=== PATIENT | male | born 1975 | race African-American/Black ===

== ENCOUNTER 2017-02-28 11:13 | Inpatient (IN) | payer OTHER ==
[2017-02-28] VITALS (9 sets, daily range): BP systolic 123–144; BP diastolic 61–82; PULSE 84–91; RESP 15–21; TEMP 98; O2SAT 92–100
[~2017-02-28] VITALS: Ht 177.8 cm; Wt 121.3 kg
[2017-02-28] MEDS ORDERED: SODIUM CHLOR 0.9% 1000 ML INJ 1,000 ML IV SCH (11:28)
[2017-02-28] MEDS ORDERED: GLIP10TA6 PO (11:29)
[2017-02-28] MEDS ORDERED: LISI-519 PO (11:29)
[2017-02-28] MEDS ORDERED: PRAV80TA2 PO (11:29)
[2017-02-28] MEDS ORDERED: METF-382 PO (11:29)
[2017-02-28] MEDS ORDERED: SODIUM CHLOR 0.9% 1000 ML INJ 1,000 ML IV ONE ×2 (11:30→13:00)
[2017-02-28] MEDS ORDERED: SODIUM CHLORIDE 0.9% FLUSH 10 ML FLUSH IVF PRN (11:30)
[2017-02-28] MEDS ORDERED: ONDANSETRON HCL 4 MG/2 ML VIAL IV PUSH ONE (11:30)
--- NOTE | 2017-02-28 11:53 | PD ---
HPI Chief Complaint: Diabetic Time Seen by Provider: 11:17 Travel History International Travel<30 days: No Contact w/Intl Traveler<30days: No Traveled to known affect area: No History of Present Illness HPI The patient is a 41-year-old Debra male who presents emergency department via EMS for altered mental status. According to EMS the patient was at home, sitting on the toilet in the bathroom, suffering from nausea and vomiting when he apparently had a syncopal episode. The patient apparently called out for his roommate, according to EMS, who found the patient lying on the floor. The patient is a somewhat reluctant historian, states he was having nausea and vomiting for one days duration, when he felt lightheaded in the bathroom. The patient states he did not lose consciousness, but did lie on the floor secondary to feeling lightheaded. The patient does have a history of diabetes for which she takes metformin and insulin. The patient denies any trauma to the head. He denies any diarrhea associated with the nausea or vomiting. He denies any current abdominal pain. Symptoms are moderate, no known alleviating factors, possibly exacerbated by recent nausea/vomiting. [facility] Past Medical History Medical History: Unable to Obtain Tetanus Vaccination: Unknown Past Surgical History Surgical History: Unable to Obtain Social History Alcohol Use: No Tobacco Use: No Substance Use: No Allergies-Medications (Allergen,Severity, Reaction): Coded Allergies: No Known Allergies (Unverified , 02/28/17) Reported Meds & Prescriptions Reported Meds & Active Scripts Active Reported Pravastatin 80 Mg Tab 80 Mg PO DAILY Lisinopril 5 Mg Tab 5 Mg PO DAILY Metformin ER (Metformin HCl) 1,000 Mg Sangeetha 1,000 Mg PO BID With evening meal Glipizide 10 Mg Tab 10 Mg PO BIDAC Take 30 minutes before a meal Review of Systems Except as stated in HPI: all other systems reviewed are Neg General / Constitutional: No: Fever HENT: Positive: Lightheadedness Cardiovascular: No: Chest Pain or Discomfort Respiratory: No: Shortness of Breath Gastrointestinal: Positive: Nausea, Vomiting, No: Abdominal Pain Genitourinary: No: Dysuria Musculoskeletal: Positive: Weakness Neurologic: Positive: Weakness, Dizziness Physical Exam Narrative GENERAL: Awake, somewhat lethargic, 41-year-old male who appears his stated age and is in no acute respiratory distress. SKIN: Focused skin assessment warm/dry. HEAD: Atraumatic. Normocephalic. EYES: Pupils equal and round. Pupils are 3 mm bilateral and reactive. ENT: No nasal bleeding or discharge. Slightly dry mucous membranes.. NECK: Trachea midline. No JVD. CARDIOVASCULAR: Regular rate and rhythm. No murmur appreciated. RESPIRATORY: No accessory muscle use. Clear to auscultation. Breath sounds equal bilaterally. GASTROINTESTINAL: Abdomen soft, reducible umbilical hernia. No rebound tenderness. MUSCULOSKELETAL: No obvious deformities. No clubbing. No cyanosis. No edema. NEUROLOGICAL: Awake, lethargic. No obvious cranial nerve deficits. Moves all 4 extremities. PSYCHIATRIC: Somewhat flat affect. Data Data Last Documented VS Vital Signs Date Time Temp Pulse Resp B/P Pulse Ox O2 Delivery O2 Flow Rate FiO2 02/28/17 13:00 90 21 131/62 97 Room Air 02/28/17 11:21 98.0 Orders Electrocardiogram (02/28/17 11:28) Complete Blood Count With Diff (02/28/17 11:28) Comprehensive Metabolic Panel (02/28/17 11:28) Creatine Kinase (Cpk) (02/28/17 11:28) Thyroid Stimulating Hormone (02/28/17 11:28) Urinalysis - C+S If Indicated (02/28/17 11:28) Blood Glucose (02/28/17 11:28) Ecg Monitoring (02/28/17 11:28) Iv Access Insert/Monitor (02/28/17 11:28) Oximetry (02/28/17 11:28) Sodium Chloride 0.9% Flush (Ns Flush) (02/28/17 11:30) Sodium Chlor 0.9% 1000 Ml Inj (Ns 1000 M (02/28/17 11:28) Drug Screen, Random Urine (02/28/17 11:28) Alcohol (Ethanol) (02/28/17 11:28) Resp Blood Gas Venous (02/28/17 ) Sodium Chlor 0.9% 1000 Ml Inj (Ns 1000 M (02/28/17 11:30) Ondansetron Inj (Zofran Inj) (02/28/17 11:30) Lactic Acid (02/28/17 11:28) Lipase (02/28/17 11:53) Prochlorperazine Inj (Compazine Inj) (02/28/17 12:00) Diphenhydramine Inj (Benadryl Inj) (02/28/17 12:00) Sodium Chlor 0.9% 1000 Ml Inj (Ns 1000 M (02/28/17 13:00) Blood Gas Venous (Vbg) (02/28/17 11:36) Place In Observation (02/28/17 ) Code Status (02/28/17 13:45) Vital Signs (Adult) Q4H (02/28/17 13:45) Activity Oob With Assistance (02/28/17 13:45) Lei Seller / Telemetry .CONTINUOUS (02/28/17 13:45) Diet Diabetic (02/28/17 Lunch) Sodium Chloride 0.9% Flush (Ns Flush) (02/28/17 13:45) Sodium Chloride 0.9% Flush (Ns Flush) (02/28/17 21:00) Acetaminophen (Tylenol) (02/28/17 13:45) Ondansetron Inj (Zofran Inj) (02/28/17 13:45) Magnesium Hydroxide Liq (Milk Of Magnesi (02/28/17 13:45) Temazepam (Restoril) (02/28/17 13:45) Basic Metabolic Panel (Bmp) (03/01/17 06:00) Comprehensive Metabolic Panel (03/01/17 06:00) Chest, Single Ap (02/28/17 13:45) Electrocardiogram (02/28/17 13:45) Pt Request For Service (02/28/17 13:45) Scd Bilateral/Knee High INES.BID (02/28/17 13:45) Naloxone Inj (Narcan Inj) (02/28/17 13:45) Insulin Aspart Supplemtl Scale (Novolog (02/28/17 16:00) Lisinopril (Prinivil) (03/01/17 09:00) Pravastatin (Pravachol) (02/28/17 14:00) Eeg Study (02/28/17 ) 1/2 Ns + Kcl Inj (02/28/17 14:00) Labs Laboratory Tests Test 02/28/17 02/28/17 02/28/17 11:36 11:40 13:25 Blood Gas Puncture Site SWAN ALBERT LINE Blood Gas Patient Temperature 98.6 Venous Blood pH 7.24 Venous Blood Partial Pressure 44 mmHg CO2 Venous Blood Partial Pressure 33 mmHg O2 Venous Blood HCO3 18 mmol/L Venous Blood Oxygen Saturation 50 % Venous Blood Oxygen Content 9.9 Vol % Venous Blood Base Excess -7.9 mmol/L Oxygen Delivery Device ROOM AIR Blood Gas Inspired Oxygen 21 % White Blood Count 10.0 TH/MM3 Red Blood Count 4.60 MIL/MM3 Hemoglobin 13.6 GM/DL Hematocrit 40.3 % Mean Corpuscular Volume 87.5 FL Mean Corpuscular Hemoglobin 29.6 PG Mean Corpuscular Hemoglobin 33.8 % Concent Red Cell Distribution Width 12.5 % Platelet Count 211 TH/MM3 Mean Platelet Volume 10.6 FL Neutrophils (%) (Auto) 70.9 % Lymphocytes (%) (Auto) 21.9 % Monocytes (%) (Auto) 6.1 % Eosinophils (%) (Auto) 0.6 % Basophils (%) (Auto) 0.5 % Neutrophils # (Auto) 7.1 TH/MM3 Lymphocytes # (Auto) 2.2 TH/MM3 Monocytes # (Auto) 0.6 TH/MM3 Eosinophils # (Auto) 0.1 TH/MM3 Basophils # (Auto) 0.0 TH/MM3 CBC Comment DIFF FINAL Differential Comment Sodium Level 139 MEQ/L Potassium Level 3.7 MEQ/L Chloride Level 105 MEQ/L Carbon Dioxide Level 20.2 MEQ/L Anion Gap 14 MEQ/L Blood Urea Nitrogen 13 MG/DL Creatinine 1.25 MG/DL Estimat Glomerular Filtration 63 ML/MIN Rate Random Glucose 356 MG/DL Lactic Acid Level 4.9 mmol/L Calcium Level 8.3 MG/DL Total Bilirubin 0.7 MG/DL Aspartate Amino Transf 15 U/L (AST/SGOT) Alanine Aminotransferase 33 U/L (ALT/SGPT) Alkaline Phosphatase 95 U/L Total Creatine Kinase 122 U/L Total Protein 7.3 GM/DL Albumin 3.5 GM/DL Lipase 116 U/L Thyroid Stimulating Hormone 0.917 uIU/ML 3rd Gen Ethyl Alcohol Level LESS THAN 3 MG/DL Urine Color LIGHT-YELLOW Urine Turbidity CLEAR Urine pH 5.5 Urine Specific [place] 1.037 Urine Protein NEG mg/dL Urine Glucose (UA) 1000 mg/dL Urine Ketones 10 mg/dL Urine Occult Blood NEG Urine Nitrite NEG Urine Bilirubin NEG Urine Urobilinogen LESS THAN 2.0 MG/DL Urine Leukocyte Esterase NEG Urine RBC LESS THAN 1 /hpf Urine WBC LESS THAN 1 /hpf Urine Squamous Epithelial <1 /hpf Cells Urine Mucus FEW /lpf Microscopic Urinalysis Comment CATH-CULT NOT IND MDM Medical Decision Making Medical Screen Exam Complete: Yes Emergency Medical Condition: Yes Medical Record Reviewed: Yes Interpretation(s) EKG reveals normal sinus rhythm with a rate of 76. Q wave noted in lead 3. Laboratory Tests Test 02/28/17 11:40 White Blood Count 10.0 TH/MM3 Red Blood Count 4.60 MIL/MM3 Hemoglobin 13.6 GM/DL Hematocrit 40.3 % Mean Corpuscular Volume 87.5 FL Mean Corpuscular Hemoglobin 29.6 PG Mean Corpuscular Hemoglobin 33.8 % Concent Red Cell Distribution Width 12.5 % Platelet Count 211 TH/MM3 Mean Platelet Volume 10.6 FL Neutrophils (%) (Auto) 70.9 % Lymphocytes (%) (Auto) 21.9 % Monocytes (%) (Auto) 6.1 % Eosinophils (%) (Auto) 0.6 % Basophils (%) (Auto) 0.5 % Neutrophils # (Auto) 7.1 TH/MM3 Lymphocytes # (Auto) 2.2 TH/MM3 Monocytes # (Auto) 0.6 TH/MM3 Eosinophils # (Auto) 0.1 TH/MM3 Basophils # (Auto) 0.0 TH/MM3 CBC Comment DIFF FINAL Differential Comment Sodium Level 139 MEQ/L Potassium Level 3.7 MEQ/L Chloride Level 105 MEQ/L Carbon Dioxide Level 20.2 MEQ/L Anion Gap 14 MEQ/L Blood Urea Nitrogen 13 MG/DL Creatinine 1.25 MG/DL Estimat Glomerular Filtration 63 ML/MIN Rate Random Glucose 356 MG/DL Lactic Acid Level 4.9 mmol/L Calcium Level 8.3 MG/DL Total Bilirubin 0.7 MG/DL Aspartate Amino Transf 15 U/L (AST/SGOT) Alanine Aminotransferase 33 U/L (ALT/SGPT) Alkaline Phosphatase 95 U/L Total Creatine Kinase 122 U/L Total Protein 7.3 GM/DL Albumin 3.5 GM/DL Lipase 116 U/L Thyroid Stimulating Hormone 0.917 uIU/ML 3rd Gen Ethyl Alcohol Level LESS THAN 3 MG/DL Differential Diagnosis Differential diagnosis includes hyperglycemia, dehydration, DKA, hyperosmolar syndrome, electrolyte abnormality, intracranial hemorrhage, syncope, pancreatitis. Narrative Course IV was established, labs are drawn and sent, and the patient was placed on cardiac telemetry monitoring and continuous pulse oximetry monitoring. The patient was administered Zofran and IV fluids. EKG was ordered and interpreted. CT of the brain was ordered. However, when patient went to the CT suite, he advises CT personnel he is unable to lie supine and refuses CT. Upon return from CT suite the patient had dry heaves. Therefore, patient was administered Compazine and Benadryl. The patient refused to lay supine for the CT. The patient was reevaluated at 12 :45 PM. The patient's roommate was there who stated the patient called out from the bathroom, when he walked in the patient was on the toilet. The patient then had a syncopal episode with loss of consciousness according to the patient's roommate. He laid him on the floor and called EMS. He states the patient had several episodes of loss of consciousness. The patient continues to complain of persistent nausea, but abdominal exam is benign. Patient states he cannot lie supine because it increases his nausea. The patient appears somewhat sedated and lethargic, therefore, will be 23 hour observation to evaluate if he returned to baseline. Registration states the patient has [facility]. I spoke with the patient, the roommate states they work at [employer]. However, the patient does not have a primary physician. Therefore, [facility] was paged for admission. The patient will need a repeat lactic acid, IV fluids, and possible evaluation by neuro/psych if his symptoms don't resolve. Patient has a somewhat odd affect, but does have elevated lactic acid and possible syncope. Physician Communication Physician Communication The on-call medical service was paged for 23 hour observation. I discussed the patient with the on-call [facility] physician, Dr. Bacon, who agrees with 23 hour observation. Diagnosis Primary Impression: Altered mental status Qualified Code: R41.82 - Altered mental status, unspecified altered mental status type Additional Impressions: Lactic acidosis Syncope Qualified Code: R55 - Syncope, unspecified syncope type Admitting Information Admitting Physician Requests: Observation Condition: Stable Warren Alexander MD Feb 28, 2017 11:53
[2017-02-28] MEDS ORDERED: PROCHLORPERAZINE INJ 10 MG/2 ML VIAL IV PUSH ONE (12:00)
[2017-02-28] MEDS ORDERED: diphenhydrAMINE HCL 50 MG/ML VIAL IV PUSH ONE (12:00)
[2017-02-28 12:05] LABS: AUTOMATED NEUTROPHIL # 7.1 TH/MM3 (1.8-7.7); BASOPHIL % 0.5 % (0.0-2.0); EOSINOPHIL # 0.1 TH/MM3 (0-0.4); EOSINOPHIL % 0.6 % (0.0-4.0); HEMATOCRIT 40.3 % (39.0-51.0); HEMO FLAGS DIFF FINAL; LYMPH % 21.9 % (9.0-44.0); LYMPHOCYTE # 2.2 TH/MM3 (1.0-4.8); MEAN CELL VOLUME 87.5 FL (80.0-100.0); MEAN CORPUSCULAR HEMOGLOBIN 29.6 PG (27.0-34.0); MEAN CORPUSCULAR HGB CONC 33.8 % (32.0-36.0); MONO % 6.1 % (0.0-8.0); NEUT % 70.9 % (16.0-70.0); PLATELET COUNT 211 TH/MM3 (150-450); RED CELL DISTRIBUTION WIDTH 12.5 % (11.6-17.2)
[2017-02-28 12:25] LABS: ANION GAP 14 MEQ/L (5-15)
[2017-02-28 12:35] LABS: ALKALINE PHOSPHATASE 95 U/L (45-117); ALT (GPT) 33 U/L (12-78); AST (GOT) 15 U/L (15-37); BICARBONATE 20.2 MEQ/L (21.0-32.0); BLOOD UREA NITROGEN 13 MG/DL (7-18); CHLORIDE 105 MEQ/L (98-107); CREATINE KINASE 122 U/L (39-308); GLOMERULAR FILTRATION RATE 63 ML/MIN (>89); POTASSIUM 3.7 MEQ/L (3.5-5.1); SODIUM (NA) 139 MEQ/L (136-145); TOTAL BILIRUBIN ADULT 0.7 MG/DL (0.2-1.0)
[2017-02-28] MEDS ORDERED: ACETAMINOPHEN 325 MG TAB PO PRN (13:45)
[2017-02-28] MEDS ORDERED: TEMAZEPAM 15 MG CAP PO PRN (13:45)
[2017-02-28] MEDS ORDERED: SODIUM CHLORIDE 0.9% FLUSH 10 ML FLUSH IV FLUSH PRN (13:45)
[2017-02-28] MEDS ORDERED: NALOXONE HCL 0.4 MG/ML AMP IV PRN (13:45)
[2017-02-28] MEDS ORDERED: MAGNESIUM HYDROXIDE SUSP 30 ML CUP PO PRN (13:45)
[2017-02-28] MEDS ORDERED: ONDANSETRON HCL 4 MG/2 ML VIAL IVP PRN (13:45)
[2017-02-28 13:46] LABS: BLOOD GAS VENOUS BASE EXCESS -7.9 mmol/L (-2-2); BLOOD GAS VENOUS HCO3 18 mmol/L (22-26); BLOOD GAS VENOUS O2 CONTENT 9.9 Vol % (9.0-17.0); BLOOD GAS VENOUS O2 HGB SAT 50 % (70-76); BLOOD GAS VENOUS PCO2 44 mmHg (44-48); BLOOD GAS VENOUS PO2 33 mmHg (35-40); BLOOD GAS VENOUS pH 7.24 (7.360-7.400); TEMP CORR TO 98.6
[2017-02-28 13:47] LABS: CRITICAL VALUE YES; DRAW SITE SWAN GANZ LINE; FIO2 21 %; OXYGEN DEVICE ROOM AIR; STAT YES
[2017-02-28 13:49] LABS: BLOOD, URINE NEG (NEG); GLUCOSE,URINE 1000 mg/dL (NEG); KETONE, URINE 10 mg/dL (NEG); MUCUS URINE FEW /lpf (OCC); NITRITE,URINE NEG (NEG); PH, URINE 5.5 (5.0-8.5); SQUAMOUS EPITHELIAL CELL URINE <1 /hpf (0-5); URINE COLOR LIGHT-YELLOW (YELLW/STRAW)
[2017-02-28 13:50] LABS: COMMENT (UR) CATH-CULT NOT IND; CULTURE IF INDICATED CATH CULTURE NOT IND
[2017-02-28] MEDS ORDERED: GLUCAGON 1 MG/ML VIAL OTHER PRN (14:30)
[2017-02-28] MEDS ORDERED: DEXTROSE 50% IN WATER 50 ML VIAL(D50) IV PUSH PRN (14:30)
[2017-02-28] MEDS: 1/2 NS + KCL 20 MEQ INJ 1,000 ML IV SCH ×2 (14:56→21:04)
--- NOTE | 2017-02-28 15:12 | RADRPT ---
EXAM DATE/TIME: 02/28/2017 13:46 [place] COMPARISON: No previous studies available for comparison. INDICATIONS : Shortness of breath. MEDICAL HISTORY : None. SURGICAL HISTORY : None. ENCOUNTER: Initial ACUITY: 1 day PAIN SCORE: Non-responsive. LOCATION: Bilateral chest FINDINGS: A single view of the chest demonstrates minimal bibasilar atelectasis. Heart is normal in size. The cardiomediastinal contours are unremarkable. Osseous structures are intact. CONCLUSION: Minimal bibasilar atelectasis. Tenzin Damon MD on February 28, 2017 at 15:10 Board Certified Radiologist. This report was verified electronically.
--- NOTE | 2017-02-28 16:01 | HHI.HP ---
HPI Service CP Hospitalists Primary Care Physician No Primary Care Physician Admission Diagnosis altered mental status, syncope versus seizure, lactic acidosis Chief Complaint: AMS Travel History International Travel<30 Days: No Contact w/Intl Traveler <30 Da: No Traveled to Known Affected Are: No History of Present Illness Mr. Davison is a 41 y/o AAM with diabetes, HTN, and hyperlipidemia. He presented to the ED at [facility] [address] on 02/28/17 with reported AMS. The pt reports that he had been in his normal state of health and was drinking with his friends last night. This morning he woke up and when he got up and out of bed he started having severe dizziness. He went to the bathroom and began having nausea and vomiting. He states that the dizziness was so severe that he felt like he was falling to the left. He fell down off the toilet but states that he did not lose consciousness or hit his head when he fell. He would not speak much to the ED physician his roommate provided the history to the ED physician. Pt is conversive lying on his left side with his eye closed. He states that the dizziness is severe when he tries to change positions or lie flat. His labs in the ED noted an elevated lactic acid level of 4.9 and a repeat elevated to 6.0 and the pt is being admitted to the ICU for lactic acidosis. Pt denies any recent injury or trauma. Review of Systems Constitutional: COMPLAINS OF: Dizziness, DENIES: Fever, Chills Respiratory: DENIES: Shortness of breath Cardiovascular: DENIES: Chest pain, Palpitations Gastrointestinal: COMPLAINS OF: Nausea, Vomiting, DENIES: Abdominal pain, Constipation, Diarrhea Past Family Social History Past Medical History Diabetes HTN Hyperlipidemia Past Surgical History Cervical spine surgery Reported Medications Pravastatin 80 Mg PO DAILY Lisinopril 5 Mg PO DAILY Metformin ER 1,000 Mg PO BID Glipizide 10 Mg PO BIDAC Allergies: Coded Allergies: No Known Allergies (Unverified , 02/28/17) Family History Noncontributory Social History Rare tobacco use (+)Alcohol use Denies any illicit drug use Physical Exam Vital Signs Vital Signs Date Time Temp Pulse Resp B/P Pulse Ox O2 Delivery O2 Flow Rate FiO2 02/28/17 13:00 90 21 131/62 97 Room Air 02/28/17 11:25 86 16 100 Room Air 02/28/17 11:25 100 Room Air 02/28/17 11:21 98.0 84 15 142/70 94 Physical Exam GENERAL: This is a well-nourished, well-developed patient, lying on his left side refusing to lie back. HEENT: Atraumatic. Normocephalic. No temporal or scalp tenderness. No nystagmus noted. No scleral icterus. Airway patent. NECK: Trachea midline, supple CARDIO: Regular. RESP: CTA bilaterally. No wheezes, rales, or rhonchi. ABD: +BS, soft, non-tender, nondistended. EXT: Extremities without clubbing, cyanosis, or edema. NEURO: Limited exam as the pt would not move from lying on his left side. Normal speech. Laboratory Laboratory Tests Test 02/28/17 02/28/17 02/28/17 02/28/17 11:36 11:40 13:25 14:45 Blood Gas Puncture Site SWAN ALBERT LINE Blood Gas Patient Temperature 98.6 Venous Blood pH 7.24 Venous Blood Partial Pressure 44 CO2 Venous Blood Partial Pressure 33 O2 Venous Blood HCO3 18 Venous Blood Oxygen Saturation 50 Venous Blood Oxygen Content 9.9 Venous Blood Base Excess -7.9 Oxygen Delivery Device ROOM AIR Blood Gas Inspired Oxygen 21 White Blood Count 10.0 Red Blood Count 4.60 Hemoglobin 13.6 Hematocrit 40.3 Mean Corpuscular Volume 87.5 Mean Corpuscular Hemoglobin 29.6 Mean Corpuscular Hemoglobin 33.8 Concent Red Cell Distribution Width 12.5 Platelet Count 211 Mean Platelet Volume 10.6 Neutrophils (%) (Auto) 70.9 Lymphocytes (%) (Auto) 21.9 Monocytes (%) (Auto) 6.1 Eosinophils (%) (Auto) 0.6 Basophils (%) (Auto) 0.5 Neutrophils # (Auto) 7.1 Lymphocytes # (Auto) 2.2 Monocytes # (Auto) 0.6 Eosinophils # (Auto) 0.1 Basophils # (Auto) 0.0 CBC Comment DIFF FINAL Differential Comment Sodium Level 139 Potassium Level 3.7 Chloride Level 105 Carbon Dioxide Level 20.2 Anion Gap 14 Blood Urea Nitrogen 13 Creatinine 1.25 Estimat Glomerular Filtration 63 Rate Random Glucose 356 Lactic Acid Level 4.9 6.0 Calcium Level 8.3 Total Bilirubin 0.7 Aspartate Amino Transf 15 (AST/SGOT) Alanine Aminotransferase 33 (ALT/SGPT) Alkaline Phosphatase 95 Total Creatine Kinase 122 Total Protein 7.3 Albumin 3.5 Lipase 116 Thyroid Stimulating Hormone 0.917 3rd Gen Ethyl Alcohol Level LESS THAN 3 Urine Color LIGHT-YELLOW Urine Turbidity CLEAR Urine pH 5.5 Urine Specific [place] 1.037 Urine Protein NEG Urine Glucose (UA) 1000 Urine Ketones 10 Urine Occult Blood NEG Urine Nitrite NEG Urine Bilirubin NEG Urine Urobilinogen LESS THAN 2.0 Urine Leukocyte Esterase NEG Urine RBC LESS THAN 1 Urine WBC LESS THAN 1 Urine Squamous Epithelial <1 Cells Urine Mucus FEW Microscopic Urinalysis Comment CATH-CULT NOT IND Urine Opiates Screen NEG Urine Barbiturates Screen NEG Urine Amphetamines Screen NEG Urine Benzodiazepines Screen NEG Urine Cocaine Screen NEG Urine Cannabinoids Screen NEG Result Diagram: 02/28/17 1140 02/28/17 1140 Imaging Last Impressions Chest X-Ray 02/28/17 1345 Signed Impressions: Service Date/Time: Tuesday, February 28, 2017 13:46 - CONCLUSION: Minimal bibasilar atelectasis. Tenzin Damon MD Septic Shock Reassessment Heart: Regular rate and rhythm Lungs: Clear Skin: Warm Peripheral Pulses: Bounding Right Radial Bounding Left Radial Bounding Right Popliteal Bounding Left Popliteal Bounding Right Dorsalis Pedis Bounding Left Dorsalis Pedis Bounding Right Posterior Tibial Bounding Left Posterior Tibial Assessment and Plan Problem List: (1) Dizziness Status: Acute Plan: - Pt woke up this morning with severe dizziness with associated nausea and vomiting. Pt reports that this seems to be more positional related and pt feels himself pulling more towards the left side. The dizziness seems to be increased with changing positions or lying flat. This seems to be more consistent with positional vertigo. - Pt is on IVF - We will start scheduled Meclizine 25mg Q8H - He was drinking alcohol last night but denies any illicit drug use - Check UDS - MRI in AM - Pt was noted to have lactic acidosis, the cause for this is unclear. Lactic acid level increased to 6 on repeat labs - EEG ordered but pt refused - Recheck labs in AM - PT evaluation in AM - Supportive care - Further recommendations as the case develops - DVT prophylaxis (2) Lactic acidosis Status: Acute Plan: - See above. (3) Diabetes Status: Chronic Plan: - NovoLog SSI - Accu checks - Check Hgb A1C (4) HTN (hypertension) Status: Chronic Plan: - Cont. Lisinopril - Monitor (5) Hyperlipidemia Status: Chronic Assessment and Plan Patient examined. Assessment and plan formulated with Marjan Sandhu PA-C. I agree with the above. Problem Qualifiers (1) Diabetes: (2) Hyperlipidemia: Qualified Code: E78.5 - Hyperlipidemia, unspecified hyperlipidemia type Marjan Sandhu Feb 28, 2017 16:01 Ziggy Bacon DO March 12, 2017 10:39
[2017-02-28] MEDS: INSULIN ASPART SUPPLEMENTAL SCALE SQ SCH ×2 (16:55→21:04)
[2017-02-28 17:11] LABS: LACTIC ACID GHOST NOT REPORTABLE
[2017-02-28] MEDS ORDERED: LORazepam 2 MG/ML VIAL IV PUSH PRN (18:00)
[2017-02-28] MEDS: MECLIZINE HCL 25 MG TAB PO SCH (19:49)
[2017-02-28] MEDS ORDERED: PRAVASTATIN SOD 80 MG TAB PO SCH (21:00)
[2017-02-28] MEDS: SODIUM CHLORIDE 0.9% FLUSH 10 ML FLUSH IV FLUSH SCH (21:04)
[2017-02-28] MEDS ORDERED: CHLORHEXIDINE GLUCONATE 2 % 1 PACK (2 CLOTHS)(extra cloths) TOPICAL PRN (21:30)
[2017-02-28 23:05] LABS: AMPHETAMINE, URINE NEG (NEG); BARBITURATES, URINE NEG (NEG); COCAINE, URINE NEG (NEG)
[2017-03-01] VITALS (8 sets, daily range): BP systolic 134–156; BP diastolic 65–90; PULSE 71–83; RESP 6–27; TEMP 98.2–99.1; O2SAT 93–96
[2017-03-01] MEDS: MECLIZINE HCL 25 MG TAB PO SCH ×2 (03:58→11:21)
[2017-03-01] MEDS ORDERED: CHLORHEXIDINE GLUCONATE 2 % 1 PACK (2 CLOTHS)(taper/protocol) TOPICAL SCH (04:00)
[2017-03-01 05:50] LABS: ALT (GPT) 25 U/L (12-78); ANION GAP 8 MEQ/L (5-15); AST (GOT) 10 U/L (15-37); BICARBONATE 22.9 MEQ/L (21.0-32.0); BLOOD UREA NITROGEN 10 MG/DL (7-18); CHLORIDE 109 MEQ/L (98-107); GLOMERULAR FILTRATION RATE 110 ML/MIN (>89); POTASSIUM 3.7 MEQ/L (3.5-5.1); SODIUM (NA) 140 MEQ/L (136-145)
[2017-03-01 05:55] LABS: ALKALINE PHOSPHATASE 65 U/L (45-117); TOTAL BILIRUBIN ADULT 1.7 MG/DL (0.2-1.0)
[2017-03-01] MEDS: 1/2 NS + KCL 20 MEQ INJ 1,000 ML IV SCH ×2 (06:05→15:35)
[2017-03-01] MEDS: INSULIN ASPART SUPPLEMENTAL SCALE SQ SCH ×3 (06:40→15:35)
[2017-03-01] MEDS: SODIUM CHLORIDE 0.9% FLUSH 10 ML FLUSH IV FLUSH SCH (08:20)
--- NOTE | 2017-03-01 08:46 | EKG ---
Date Performed: 02/28/2017 Time Performed: 21:02:20 PTAGE: 41 years EKG: Sinus rhythm NORMAL ECG PREVIOUS TRACING : 02/28/2017 11.39 No significant change from previous tracing noted. DOCTOR: Ronald Wilkerson Interpretating Date/Time 03/01/2017 08:45:16
[2017-03-01] MEDS ORDERED: LISINOPRIL 5 MG TAB PO SCH (09:00)
--- NOTE | 2017-03-01 09:29 | HHI.PR ---
Subjective Remarks Pt more comfortable today. Pt's dizziness is much improved. Pt has NO new complaints. Pt tolerating PO intake. NO n/v/d NO report of any seizure activity. Objective Vitals Vital Signs Date Time Temp Pulse Resp B/P Pulse Ox O2 Delivery O2 Flow Rate FiO2 03/01/17 06:00 71 03/01/17 04:00 82 03/01/17 04:00 98.7 82 27 147/90 96 03/01/17 02:00 81 03/01/17 00:00 98.4 83 18 135/65 96 03/01/17 00:00 83 02/28/17 22:00 91 02/28/17 20:16 98.0 91 16 128/61 92 02/28/17 19:45 88 18 137/79 98 Room Air 02/28/17 18:33 90 15 144/63 97 Room Air 02/28/17 17:30 88 20 123/75 99 Room Air 02/28/17 16:33 91 15 138/82 99 Room Air 02/28/17 13:00 90 21 131/62 97 Room Air 02/28/17 11:25 86 16 100 Room Air 02/28/17 11:25 100 Room Air 02/28/17 11:21 98.0 84 15 142/70 94 02/28/17 02/28/17 03/01/17 15:00 23:00 07:00 Intake Total 1118 ml 1196 ml Output Total 1250 ml 450 ml Balance -132 ml 746 ml Intake Oral 250 ml 240 ml IV Total 868 ml 956 ml Output Urine Total 1250 ml 450 ml # Bowel Movements 0 0 Result Diagram: 02/28/17 1140 03/01/17 0456 Imaging Last Impressions Chest X-Ray 02/28/17 1345 Signed Impressions: Service Date/Time: Tuesday, February 28, 2017 13:46 - CONCLUSION: Minimal bibasilar atelectasis. Tenzin Damon MD Objective Remarks GENERAL: This is a well-nourished, well-developed patient, in no apparent distress. CARDIOVASCULAR: Regular rate and rhythm without murmurs, gallops, or rubs. RESPIRATORY: Clear to auscultation. Breath sounds equal bilaterally. No wheezes , rales, or rhonchi. GASTROINTESTINAL: Abdomen soft, non-tender, nondistended. Normal active bowel sounds MUSCULOSKELETAL: Extremities without clubbing, cyanosis, or edema. NEURO: Alert & Oriented x4 to person, place, time, situation. Moves all ext x4 A/P Problem List: (1) Dizziness Status: Acute Plan: - improving - Pt woke up this morning with severe dizziness with associated nausea and vomiting. Pt reports that this seems to be more positional related and pt feels himself pulling more towards the left side. The dizziness seems to be increased with changing positions or lying flat. This seems to be more consistent with positional vertigo. - Pt was drinking alcohol night prior to admission, but denies any illicit drug use - UDS --> negative to date - MRI --> no acute findings - EEG --> no acute findings - Pt was noted to have lactic acidosis upon admission, now resolved - discharge to home - meclizine prn dizziness (2) Lactic acidosis Status: Acute Plan: - resolved - etiology is NOT clear, but there NO indication of infection - vitals are stable, no tachycardia, no hypotension, no fever - A&Ox3 - pt's elevation of his lactic acid may have been d/t etoh, seizure activity metformin, DM, or a combination of these conditions. - seizure activity with etoh withdrawal would be a consideration. Pt denies. (3) Diabetes Status: Chronic Plan: - NovoLog SSI - Accu checks - Hgb A1C 11.4 - Pt will need close monitoring and f/u outpt for his DM - pt admitted with lactic acidosis - stop metformin - discharge to home on glipizide 10mg BID - Januvia 25mg daily - pt give prescription for diabetic supplies - f/u with new PCP, Dr. Arik Robins in 1 week - pt to schedule for outpt branch specialist with [facility] (4) HTN (hypertension) Status: Chronic Plan: - Cont. Lisinopril - Monitor (5) Hyperlipidemia Status: Chronic Problem Qualifiers (1) Diabetes: (2) Hyperlipidemia: Qualified Code: E78.5 - Hyperlipidemia, unspecified hyperlipidemia type Ziggy Bacon DO Mar 01, 2017 09:28
[2017-03-01 10:24] LABS: HEMOGLOBIN A1a 1.4 %; HEMOGLOBIN A1b 2.4 %; HEMOGLOBIN Ao 77.7 %; HEMOGLOBIN LA1C 2.8 %; HEMOGLOBIN P3 4.4 %
--- NOTE | 2017-03-01 11:16 | MG ---
cc: SIENNA ALVAREZ M.D. Lab No: [id number] Date: 03/01/2017 Age: ___ Sex: M Race: __ REFERRING PHYSICIAN Dr. Bacon TECHNIQUE 17 channel EEG DESCRIPTION The background rhythm reveals generalized slowing in both theta and delta frequencies ranging from 3 Hz to 5 Hz. The amplitude is fairly attenuated at 2-5 microvolts in a generalized fashion. There are no lateralizing features seen and there are no epileptiform discharges present. Hyperventilation was not performed. Photic stimulation was done in a stepwise fashion with a modest posterior driving response. At times in the EEG, there is a normal alpha rhythm as well which suggests that the slowing seen earlier was due to drowsiness and sleep state. INTERPRETATION Overall normal EEG. There was some slowing, but I think this is probably related to drowsiness as there was an alpha rhythm seen later in the tracing. I do not see any signs for epileptic focus. MD ARIANNE Tian/JASEN /10:58 AM /11:12 AM
[2017-03-01 11:52] LABS: AUTOMATED NEUTROPHIL # 5.2 TH/MM3 (1.8-7.7); BASOPHIL # 0.1 TH/MM3 (0-0.2); BASOPHIL % 0.7 % (0.0-2.0); EOSINOPHIL # 0.1 TH/MM3 (0-0.4); EOSINOPHIL % 0.8 % (0.0-4.0); HEMATOCRIT 38.8 % (39.0-51.0); HEMO FLAGS DIFF FINAL; LYMPH % 24.4 % (9.0-44.0); LYMPHOCYTE # 1.8 TH/MM3 (1.0-4.8); MEAN CELL VOLUME 86.9 FL (80.0-100.0); MEAN CORPUSCULAR HGB CONC 32.2 % (32.0-36.0); MONO % 5.2 % (0.0-8.0); NEUT % 68.9 % (16.0-70.0); PLATELET COUNT 175 TH/MM3 (150-450); RED BLOOD COUNT 4.46 MIL/MM3 (4.50-5.90); RED CELL DISTRIBUTION WIDTH 12.7 % (11.6-17.2); WHITE BLOOD COUNT 7.5 TH/MM3 (4.0-11.0)
--- NOTE | 2017-03-01 13:04 | EKG ---
Date Performed: 02/28/2017 Time Performed: 11:39:47 PTAGE: 41 years EKG: Sinus rhythm NORMAL ECG NO PREVIOUS TRACING DOCTOR: Ronald Wilkerson Interpretating Date/Time 03/01/2017 13:02:32
[2017-03-01] MEDS ORDERED: GADODIAMIDE PF 287 MG/ML 5 ML VIAL (for RAD MRI) IV ONE (14:40)
--- NOTE | 2017-03-01 14:57 | RADRPT ---
EXAM DATE/TIME: 03/01/2017 14:19 [place] COMPARISON: No previous studies available for comparison. INDICATIONS : Altered mental status. Vertigo with nausea. CONTRAST: 24 cc Omniscan (gadodiamide) IV MEDICAL HISTORY : Hypertension. Diabetes mellitus type 2. Hypercholesterolemia. SURGICAL HISTORY : Fusion, cervical. ENCOUNTER: Subsequent ACUITY: 2 day PAIN SCORE: 0/10 LOCATION: cranial TECHNIQUE: Multiplanar, multisequence MRI of the brain was performed both prior to and following the administrat ion of paramagnetic contrast. FINDINGS: CEREBRUM: The ventricles are normal for age. No evidence of midline shift, mass lesion, hemorrhage or acute in farction. No extraaxial fluid collections are seen. The pituitary gland and suprasellar cistern are normal in configuration. WHITE MATTER: No significant signal abnormalities are seen in the white matter. POSTERIOR FOSSA: The cerebellum and brainstem are intact. The 4th ventricle is midline. The cerebellopontine angle is unremarkable. Cerebellar tonsils are positioned just below the foramen magnum characteristic of tons illar ectopia. No williams Chiari malformation. DIFFUSION IMAGING: No focal areas of restricted diffusion are seen. No evidence of acute infarction. EXTRACRANIAL: The visualized portions of the orbits and paranasal sinuses are unremarkable. POST-CONTRAST: No abnormal areas of parenchymal or dural enhancement. No evidence of blood-brain barrier breakdown. CONCLUSION: 1. 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 2. Otherwise negative. William Van MD on March 01, 2017 at 14:52 Board Certified Radiologist. This report was verified electronically.
[2017-03-01] MEDS ORDERED: MECL-62 PO (16:45)
[2017-03-01] MEDS ORDERED: GLIP10TA6 PO ×2 (16:45→17:10)
--- NOTE | 2017-03-01 16:47 | HHI.DCPOC ---
Discharge Care Plan Diagnosis: (1) Dizziness (2) Lactic acidosis (3) Hyperlipidemia (4) Diabetes (5) HTN (hypertension) Goals to Promote Your Health * To prevent worsening of your condition and complications * To maintain your health at the optimal level Directions to Meet Your Goals Take your medications as prescribed Follow your dietary instruction Follow activity as directed Keep your appointments as scheduled Take your immunizations and boosters as scheduled If your symptoms worsen call your PCP, if no PCP go to Urgent Care Center or Emergency Room Smoking is Dangerous to Your Health. Avoid second hand smoke Call the 24-hour hour crisis hotline for domestic abuse at Marjan Sandhu Mar 01, 2017 16:47 Ziggy Bacon DO March 12, 2017 10:40
[2017-03-01] MEDS ORDERED: SITA25 PO (17:10)
[2017-03-04 10:17] LABS: BATH SALTS (MDPV) UR NEG (NEG); ECSTASY (MDMA) UR NEG (NEG); GABAPENTIN UR NEG (NEG); HEROIN (6-ACETYLMORPHINE) UR NEG (NEG); HYDROMORPHONE U NEG (NEG); K2 SPICE UR NEG (NEG); OBMETHADONE UR NEG (NEG); OXYCODONE (PERCODAN) NEG (NEG); PHENCYCLIDINE URINE NEG (NEG)
== END 2017-03-01 19:15 | disposition home or self-care (01) | DRG 641 ==
LOC: NEPC 11:13 → NEDA 13:48 → HIMN 20:00 → OBSVTOIN 03-01 18:55
PROVIDERS: ADMIT Hospitalist; ATTEND Hospitalist
DX: E87.2 Acidosis (principal); I10 Essential (primary) hypertension; R55 Syncope and collapse; E78.5 Hyperlipidemia, unspecified; R42 Dizziness and giddiness; E11.9 Type 2 diabetes mellitus without complications; Z79.84 Long term (current) use of oral hypoglycemic drugs; Z79.4 Long term (current) use of insulin; Z72.0 Tobacco use
CPT/HCPCS: 70553; 71010; 80053; 80307; 80348; 81001; 82550; 82805; 82948; 83036; 83605; 83690; 84443; 85025; 87641; 93005; 95819; 96361; 96374; 96375; A9579; G0378; G0480; G0481; G8987-GP; G8988-GP; J0780; J1200; J1815; J2060; J2405; J7030